=== PATIENT | male | born 1980 | race Caucasian/White ===

== ENCOUNTER 2019-09-05 19:10 | Emergency (ER) | payer SELFPAY ==
[~2019-09-05] VITALS: Ht 185.4 cm; Wt 93.0 kg
--- OUTSIDE RECORDS SUMMARY | 2019-09-05 19:13 | XMS REPORT | Continuity of Care Document ---
Author Author [facility] t Organization [facility] Address [address] [place] [address] Phone Unavailable Care Team Providers Care Cardiovascular Disease Specialist Name Role Phone Unavailable Unavailable Payers Payer Name Policy Type Policy Number Effective Date Expiration Date S ource Problems This patient has no known problems. Allergies, Adverse Reactions, Alerts Allergy Name Allergy Type Status Severity Reaction(s) Onset Date Inacti ve Date Treating Clinician Comments Source Penicillins DA Active U 2019-06-19 00:00:00 [facility] Penicillins DA Active U 2017-03-13 00:00:00 [facility] Medications This patient has no known medications. Procedures This patient has no known procedures. Results Test Description Test Time Test Comments Results Result Comments Source INFLUENZA A B 2019-06-19 14:19:00 Test Item INFLUENZA A (test code = FLUAPCR) Negative Negative INFLUENZA B (test code = FLUBPCR) Negative Negative - XR CHEST 1 [id number] 13:58:00 FAX: Meg Townsend [phone] Gates: St: PRE Name: CARMENCITA SWIFT [facility] : [birth year] Age/S: 38/M [address] [place] [address] Unit #: [id number] Loc: [place] [address] Phys: Meg Guido Acct: [id number] Dis Date: Status: PRE ER PHONE #: [phone] Exam Date: 06/19/2019 1353 FAX #: [phone] Reason: Cough EXAMS: CPT CODE: [id number] XR CHEST 1 V 24053 PROCEDURE: CHEST SINGLE VIEW INDICATION: Cough COMPARISON: None. FINDINGS: The lungs are clear. The pleura, cardiomediastinal silhouette and bony thorax are normal. No vascular congestion is present. IMPR ESSION: No acute cardiopulmonary process. SL: [id number] at 7887 Reported and signed by: Sal Warner M.D. CC: Meg MUNOZ Technologist: RT Ellen(Ras) Trnneftali Date/Time/By: 06/19/2019 (8102) : By: [email or web address] Orig Print D/T: S: 06/19/2019 (1535) PAGE 1 Signed Report - XR CHEST 1 [id number] 14:06:00 Gates: St: REG Name: CARMENCITA SWIFT [facility] : [birth year] Age/S: 38/M [address] [place] [address] Unit #: [id number] Loc: [place] [address] Phys: Christian Kumar MD Acct: [id number] Dis Date: Status: REG ER PHONE #: [phone] Exam Date: 03/13/2019 1350 FAX #: [phone] Reason: Weakness EXAMS: CPT CODE: [id number] XR CHEST 1 V 64235 CHEST, ONE VIEW: H ISTORY: Acute generalized weakness COMPARISON EXAM(S): August 2018 FINDINGS: This single portable view was obtained at 1349 hours on 03/13/2019 and shows the cardiac silhouette to be normal and the lungs clear. No pleural fluid or evidence of pneumothorax. Well-healed fracture is identified in the middle third of the left clavicle. The s keletal structures are otherwise unremarkable. IMPRESSION: 1. No acute changes. 2. Stable appearance of the c hest compared to August 2018. 3. Well healed left clavicle fracture. SL:01 at 1406 Reported and signed by: Dusty Brown M.D. CC: Technologist: RT Claudette(Ras) Trnscrd Date/Time/By: 03/13/2019 (5800) : By: Laurie Orig Print D/T: S: 03/13/2019 (7145) PAGE 1 Signed Report - CT HEAD/BRAIN W/O [id number] 13:58:00 Name: CARMENCITA GARZA [facility] : 1980 Age/S: 38 / M [address] [place] [address] Unit #: [id number] Loc: [place] [address] Phys: Christian Kumar MD Acct: [id number] Dis Date: Status: REG ER PHONE #: [phone] Exam Date: 03/13/2019 1345 FAX #: [phone] Reason: dizzy EXAMS: CPT CODE: [id number] CT HEAD/BRAIN W/O CONT 08673 CT head without contrast 03/13/2019 HISTORY: Dizziness. PROCEDURE: Multiple axial images from the skull base to the skull vertex were obtained without contrast. Coronal and sagittal reconstructed images were performed CT imaging performed at this location utilizes radiation dose optimization techniques which include one or more of the following: -Automated exposure control -Adjustment of the mA and/or kV according to patient size -Use of iterative reconstruction technique CT Radiation Dose DLP 419.7 mGy-cm Comparison is made to 03/13/2017 FINDINGS: No acute intracranial hemorrhage, midline shift, extra- axial fluid collection, or hydrocephalus is present. No cortical hypodensity to suggest an acute infarct is noted. Marcos-white differentiation is within normal limits. The visualized mastoid air cells are clear. There is no air-fluid level in the visualized paranasal sinuses. IMPRESSION: No acute intracranial abnormality. SL: [id number] at 1358 Reported and signed by: Sal Warner M.D. CC: Technologist:Harmeet Cornejo, RT(R)(CT) CTDI: DLP: Trnscb Date/Time: 03/13/2019 (5209) [email or web address] Orig Print D/T: S: 03/13/2019 (7732) PAGE 1 Signed Report TROPONIN-I [id number] 13:54:00* Test Item Value Reference Range Interpretation Comments TROPONIN-I RAPID (test code = TROPIRAP) 0.01 ng/mL 0.00-0.08 N Performed by certified take up operator at [facility] Negative: <= 0.08 Positive: >= 0.09An elevated troponin value alone is not sufficient todiagnose a myocardial infarction. Rather, the patient sclinical presentation (history, physical exam) and ECGshould be used in conjunction with troponin in thediagnostic evaluation of suspected myocardial infarction. Aserial sampling protocol is recommended to facilitate the identification of temporal changes in troponin levels characteristic of PR. CBC W/AUTO [id number] 13:48:00* Test Item Value Reference Range Interpretation Comments WHITE BLOOD CELL (test code = WBC) 5.94 x10 3/uL 4.5-11.0 N RED BLOOD CELL (test code = RBC) 5.49 x10 6/uL 4.00-5.60 N HEMOGLOBIN (test code = HGB) 16.0 g/dL 12.5-16.9 N HEMATOCRIT (test code = HCT) 48.4 % 37.5-50.7 N MEAN CELL VOLUME (test code = MCV) 88.2 fL 81.0-99.0 N MEAN CELL HGB (test code = MCH) 29.1 pg 27.0-33.0 N MEAN CELL HGB CONCETRATION (test code = MCHC) 33.1 g/dL 33.0-37. 0 N RED CELL DISTRIBUTION WIDTH CV (test code = RDW) 13.8 % 11.5- 14.5 N RED CELL DISTRIBUTION WIDTH SD (test code = RDW-SD) 44.3 fL 37 .0-54.0 N PLATELET COUNT (test code = PLT) 251 x10 3/uL 150-400 N MEAN PLATELET VOLUME (test code = MPV) 10.6 fL 7.0-9.0 H NEUTROPHIL % (test code = NT%) 64.2 % 56.0-77.0 N IMMATURE GRANULOCYTE % (test code = IG%) 0.2 % 0.0-2.0 N LYMPHOCYTE % (test code = LY%) 23.7 % 14.0-32.0 N MONOCYTE % (test code = MO%) 5.9 % 4.8-9.0 N EOSINOPHIL % (test code = EO%) 5.7 % 0.3-3.7 H BASOPHIL % (test code = BA%) 0.3 % 0.0-2.0 N NUCLEATED RBC % (test code = NRBC%) 0.0 % 0-0 N NEUTROPHIL # (test code = NT#) 3.81 x10 3/uL 2.0-7.6 N IMMATURE GRANULOCYTE # (test code = IG#) 0.01 x10 3/uL 0.00-0.03 N LYMPHOCYTE # (test code = LY#) 1.41 x10 3/uL 1.0-3.8 N MONOCYTE # (test code = MO#) 0.35 x10 3/uL 0.1-0.8 N EOSINOPHIL # (test code = EO#) 0.34 x10 3/uL 0.0-0.2 H BASOPHIL # (test code = BA#) 0.02 x10 3/uL 0.0-0.2 N NUCLEATED RBC # (test code = NRBC#) 0.00 x10 3/uL 0.0-0.1 N MANUAL DIFF REQUIRED (test code = MDIFF) NO CHEMISTRY 8 [id number] 13:46:00* Test Item Value Reference Range Interpretation Comments ISTAT-SODIUM (test code = NAP) MMOL/L 134-147 ISTAT-POTASSIUM (test code = KP) MMOL/L 3.4-5.0 ISTAT-CHLORIDE (test code = CLP) MMOL/L 100-108 ISTAT CARBON DIOXIDE (test code = ISTAT-CO2) mmol/L 21-33 N ISTAT CALCIUM IONIZED (test code = ISTAT-YONI) MG/DL 1.12-1.3 2 ISTAT-GLUCOSE (test code = GLUP) MG/DL 70-110 H ISTAT-BUN (test code = BUNP) MG/DL 7-18 N BEDSIDE CREATININE (test code = CREATBED) MG/DL 0.6-1.3 N GLOMERULAR FILTRATION RATE POC (test code = GFRBED) 72 ML/MIN CHEMISTRY 8 [id number] 13:46:00* Test Item Value Reference Range Interpretation Comments ISTAT-SODIUM (test code = NAP) 141 MMOL/L 134-147 N ISTAT-POTASSIUM (test code = KP) 3.9 MMOL/L 3.4-5.0 N ISTAT-CHLORIDE (test code = CLP) 105 MMOL/L 100-108 N Performed by certified take up operator at [facility] ISTAT CARBON DIOXIDE (test code = ISTAT-CO2) 25.0 mmol/L 21-33 N ISTAT CALCIUM IONIZED (test code = ISTAT-YONI) 1.17 MG/DL 1.12-1.3 2 N ISTAT-GLUCOSE (test code = GLUP) 113 MG/DL 70-110 H ISTAT-BUN (test code = BUNP) 18 MG/DL 7-18 N BEDSIDE CREATININE (test code = CREATBED) 1.2 MG/DL 0.6-1.3 N GLOMERULAR FILTRATION RATE POC (test code = GFRBED) 72 ML/MIN - ABDOMEN [id number] 23:34:00 Name: CARMENCITA GARZA [facility] : 1980 Age/S: 38 / M [address] [place] [address] Unit #: [id number] Loc: [place] [address] Phys: Carmencita Parker Acct: [id number] Dis Date: Status: REG ER PHONE #: [phone] Exam Date: 09/08/2018 2320 FAX #: [phone] Reason: RUQ and R rib pain with inspiration, tender to EXAMS: CPT CODE: [id number] US ABDOMEN LTD 08655 PROCEDURE: RUQ U/S CLINICAL INDICATION: Abdominal pain COMPARISON: CT abdomen dated 03/13/17 TECHNIQUE: Sonographic imaging is obtained of the right upper quadrant of the abdomen FINDINGS: LIVER: There is normal liver contour, size, and morphology with normal parenchymal echotexture. BILE DUCTS: The intrahepatic and extrahepatic bile ducts are not dilated with the common bile duct measuring right mm. GALLBLADDER: There is no gallstone, gallbladder sludge, pericholecystic fluid, or wall thickening. PANCREAS: The visualized pancreas appears unremarkable. KIDNEY: The right kidney measures 10.6 cm in length. There is normal renal contour and morphology, with normal parenchymal echotexture. There is no hydronephrosis. AORTA AND INFERIOR VENA CAVA: Visualized portions are unremarkable. ASCITES: There is no ascites. IMPRESSION: No acute abnormality. SL:01 at 2334 Reported and signed by: Philip Gupta M.D. CC: Carmencita MUNOZ Technologist: Montserrat Crandall RDMS(A)(OB) Trnscb Date/Time: 09/08/2018 (1019) [email or web address] Orig Print D/T: S: 09/08/2018 (1715) Probe: PAGE 1 Signed Report COMPREHENSIVE METABOLIC [id number] 23:31:00* Test Item Value Reference Range Interpretation Comments SODIUM (test code = NA) 137 mEq/L 134-147 N POTASSIUM (test code = K) 4.0 mEq/L 3.4-5.0 N CHLORIDE (test code = CL) 104 mEq/L 100-108 N CARBON DIOXIDE (test code = CO2) 28 mEq/L 21-33 N ANION GAP (test code = GAP) 9 0-20 N GLUCOSE (test code = GLU) 102 mg/dL 70-110 N BLOOD UREA NITROGEN (test code = BUN) 14 mg/dL 7-18 N GLOMERULAR FILTRATION RATE (test code = GFR) 74.5 105-110 L Units of measure = ml/min/1.73 m2 CREATININE (test code = CREAT) 1.1 mg/dL 0.6-1.3 N TOTAL PROTEIN (test code = PROT) 7.4 g/dL 6.4-8.2 N ALBUMIN (test code = ALB) 3.70 g/dL 3.4-5.0 N CALCIUM (test code = CA) 8.6 mg/dL 8.0-10.5 N BILIRUBIN TOTAL (test code = BILT) 0.40 mg/dL 0.0-1.0 N SGOT/AST (test code = AST) 26 IUnit/L 15-37 N SGPT/ALT (test code = ALT) 26 IUnit/L 15-65 N ALKALINE PHOSPHATASE TOTAL (test code = ALKP) 53 IUnit/L 20-125 N [id number] 23:31:00* Test Item Value Reference Range Interpretation Comments LIPASE (test code = LIP) 175 IUnit/L 73-393 N URINALYSIS [id number] 23:31:00* Test Item Value Reference Range Interpretation Comments UA COLOR (test code = COLU) YEL/STRAW UA APPEARANCE (test code = APPU) CLEAR UA GLUCOSE DIPSTICK (test code = DGLUU) NEGATIVE UA BILIRUBIN DIPSTICK (test code = BILU) NEGATIVE UA KETONE DIPSTICK (test code = KETU) NEGATIVE UA SPECIFIC GRAVITY (test code = SGU) 1.005-1.030 UA BLOOD DIPSTICK (test code = MITUL) NEGATIVE UA PH DIPSTICK (test code = BJ) 5.0-7.0 UA PROTEIN DIPSTICK (test code = PROU) NEGATIVE UA UROBILINIOGEN DIPSTICK (test code = URO) mg/dL 0.2-1.0 UA NITRITE DIPSTICK (test code = ROBERT) NEGATIVE UA LEUKOCYTE ESTERASE DIPSTICK (test code = LEUU) NEGA TIVE UA WBC (test code = WBCU) 0-3 WBC/HPF 0-3 UA RBC (test code = RBCU) 0-3 RBC/HPF 0-3 UA BACTERIA (test code = BACU) TRACE /HPF NONE SEEN UA SQUAMOUS CELLS (test code = SQU) 0-5 /HPF NONE SEEN URINALYSIS [id number] 23:31:00* Test Item Value Reference Range Interpretation Comments UA COLOR (test code = COLU) YELLOW YEL/STRAW UA APPEARANCE (test code = APPU) CLEAR CLEAR UA GLUCOSE DIPSTICK (test code = DGLUU) NEGATIVE NEGATIVE UA BILIRUBIN DIPSTICK (test code = BILU) NEGATIVE NEGATIVE UA KETONE DIPSTICK (test code = KETU) NEGATIVE NEGATIVE UA SPECIFIC GRAVITY (test code = SGU) 1.015 1.005-1.030 N UA BLOOD DIPSTICK (test code = MITUL) NEGATIVE NEGATIVE UA PH DIPSTICK (test code = BJ) 6.0 5.0-7.0 N UA PROTEIN DIPSTICK (test code = PROU) NEGATIVE NEGATIVE UA UROBILINIOGEN DIPSTICK (test code = URO) 0.2 mg/dL 0.2-1.0 UA NITRITE DIPSTICK (test code = ROBERT) NEGATIVE NEGATIVE UA LEUKOCYTE ESTERASE DIPSTICK (test code = LEUU) 1+ NEGA TIVE A UA WBC (test code = WBCU) 0-3 WBC/HPF 0-3 UA RBC (test code = RBCU) 0-3 RBC/HPF 0-3 UA BACTERIA (test code = BACU) TRACE /HPF NONE SEEN UA SQUAMOUS CELLS (test code = SQU) 0-5 /HPF NONE SEEN CBC W/AUTO [id number] 23:15:00* Test Item Value Reference Range Interpretation Comments WHITE BLOOD CELL (test code = WBC) 8.63 x10 3/uL 4.5-11.0 N RED BLOOD CELL (test code = RBC) 5.22 x10 6/uL 4.00-5.60 N HEMOGLOBIN (test code = HGB) 15.4 g/dL 12.5-16.9 N HEMATOCRIT (test code = HCT) 46.7 % 37.5-50.7 N MEAN CELL VOLUME (test code = MCV) 89.5 fL 81.0-99.0 N MEAN CELL HGB (test code = MCH) 29.5 pg 27.0-33.0 N MEAN CELL HGB CONCETRATION (test code = MCHC) 33.0 g/dL 33.0-37. 0 N RED CELL DISTRIBUTION WIDTH CV (test code = RDW) 12.4 % 11.5- 14.5 N RED CELL DISTRIBUTION WIDTH SD (test code = RDW-SD) 41.0 fL 37 .0-54.0 N PLATELET COUNT (test code = PLT) 295 x10 3/uL 150-400 N MEAN PLATELET VOLUME (test code = MPV) 10.4 fL 7.0-9.0 H NEUTROPHIL % (test code = NT%) 65.6 % 56.0-77.0 N IMMATURE GRANULOCYTE % (test code = IG%) 0.3 % 0.0-2.0 N LYMPHOCYTE % (test code = LY%) 23.8 % 14.0-32.0 N MONOCYTE % (test code = MO%) 6.5 % 4.8-9.0 N EOSINOPHIL % (test code = EO%) 3.6 % 0.3-3.7 N BASOPHIL % (test code = BA%) 0.2 % 0.0-2.0 N NUCLEATED RBC % (test code = NRBC%) 0.0 % 0-0 N NEUTROPHIL # (test code = NT#) 5.66 x10 3/uL 2.0-7.6 N IMMATURE GRANULOCYTE # (test code = IG#) 0.03 x10 3/uL 0.00-0.03 N LYMPHOCYTE # (test code = LY#) 2.05 x10 3/uL 1.0-3.8 N MONOCYTE # (test code = MO#) 0.56 x10 3/uL 0.1-0.8 N EOSINOPHIL # (test code = EO#) 0.31 x10 3/uL 0.0-0.2 H BASOPHIL # (test code = BA#) 0.02 x10 3/uL 0.0-0.2 N NUCLEATED RBC # (test code = NRBC#) 0.00 x10 3/uL 0.0-0.1 N MANUAL DIFF REQUIRED (test code = MDIFF) NO - XR RIBS UNI W/CXR 3+V [id number] 23:06:00 FAX: Carmencita Parker [phone] Gates: St: REG Name: CARMENCITA SWIFT [facility] : [birth year] Age/S: 38/M [address] [place] [address] Unit #: [id number] Loc: [place] [address] Phys: Carmencita Parker Acct: [id number] Dis Date: Status: REG ER PHONE #: [phone] Exam Date: 09/08/2018 2250 FAX #: [phone] Reason: Rib pain with palpation 5,6,7, painful inspirat EXAMS: CPT CODE: [id number] XR RIBS UNI W/CXR 3+[place] [id number] EXAM: CR, XR RIBS UNI W/chest 3+ view RT: 09/08/2018, 2242 hours HISTORY: Right-sided rib pain for 2 weeks TECHNIQUE: Right-sided rib series with 1 view of the chest. COMPARISON: Chest radiograph dated July 12, 2016 FI NDINGS: Chest: Trachea is midline. Heart is mildly enlarged. Pulm onary vascularity is indistinct. There is airspace consolidation, pleural effusion or no pneumothorax. Old left clavicular fracture. Right-sided ribs: No right-sided rib fractures identified. IMPRESSION: 1. No right-sided rib fracture seen. 2. No acute cardiopulmonary disease. SL: [JSYED-H] at 2306 Reported and signed by: Raj Marc M.D. CC: Carmencita MUNOZ Technologist: RT Billie(Ras) Trnscrd Date/Time/By: 09/08/2018 (2806) : By: [email or web address] Orig Print D/T: S: 09/08/2018 (8153) PAGE 1 Signed Report
[2019-09-05] MEDS ORDERED: DIPHENHYDRAMINE HCL 25 MG CAP PO ONE (19:30)
[2019-09-05] MEDS ORDERED: HYDROCODONE/APAP 10MG-325MG TAB PO ONE (19:30)
[2019-09-05] MEDS ORDERED: METHYLPREDNISOLONE SOD SUCC 125 MG/2ML VIAL IM ONE (19:30)
--- NOTE | 2019-09-05 19:40 | Emergency Department Note ---
History of Present Illnes History of Present Illness Chief Complaint: General Medicine Complaints History of Present Illness This is a 39 year old male presents to ER with complaint of being stung in the left wrist by a stingray while at [facility] today about an hour prior to arrival. Patient states the whole bar was still intact at stating that he can tell. Complains of numbness and pain to the left hand.. Historian: Patient Arrival Mode: Car Onset (how long ago): hour(s) (1) Location: left wrist Quality: pain, swelling, numbness Radiation: non-radiation Severity: moderate Onset quality: sudden Duration (how long): hour(s) (1) Timing of current episode: constant Progression: unchanged Chronicity: new Context: recent illness; trauma/injury (stung by stingray) Relieving factors: none Exacerbating factors: none Associated symptoms: denies other symptoms Treatments prior to arrival: none Past Medical/Family History Physician Review I have reviewed the patient's past medical and family history. Any updates have been documented here. Past Medical History Recent Fever: No Clinical Suspicion of Infectio: No New/Unexplained Change in Ment: No Past Medical History: GERD Past Surgical History: None Social History Alcohol Use: Occasional Any Illegal Drug Use: No Family History Family history of heart diseas: No Other Last Tetanus: OOD Review of Systems Review of Systems Constitutional: no symptoms EENTM: no symptoms Cardiovascular: no symptoms Respiratory: no symptoms Gastrointestinal: no symptoms Genitourinary: no symptoms Musculoskeletal: as per HPI Neurological: no symptoms Psychological: no symptoms Endocrine: no symptoms Hematological/Lymphatic: no symptoms Review of other systems All other systems reviewed and negative. Physical Exam Related Data Allergies: Coded Allergies: Penicillins (Verified Allergy, Severe, ANAPHYLAXIS, 09/05/19) Triage Vital Signs Vital Signs Date Time Temp Pulse Resp B/P (MAP) Pulse Ox O2 Delivery O2 Flow Rate FiO2 09/05/19 19:19 97.0 62 18 140/97 98 Vital signs reviewed: Yes Physical Exam CONSTITUTIONAL Constitutional: well-developed, well-nourished, distressed (mild) HENT HENT: normocephalic, atraumatic, oropharynx clear/moist, nose normal HENT L/R: left ext ear normal, right ext ear normal EYES Eyes: PERRL, conjunctivae normal NECK Neck: ROM normal PULMONARY Pulmonary: effort normal, breath sounds normal CARDIOVASCULAR Cardiovascular: regular rhythm, heart sounds normal, capillary refill normal, normal rate GASTROINTESTINAL Abdominal: soft, nontender, bowel sounds normal GENITOURINARY Genitourinary: exam deferred SKIN Skin: warm, dry MUSCULOSKELETAL Musculoskeletal: other (puncure wound left wrist with mild swelling and erythema, neuro vasulary intact, tendon exam intact) NEUROLOGICAL Neurological: alert, oriented x 3, no gross motor or sensory deficits PSYCHOLOGICAL Psychological: mood/affect normal, judgement normal Results Imaging Imaging results reviewed: Yes Impressions Patient Name: CARMENCITA GARZA MR #: [id number] : 1980 Age/Sex: 39/M Req #: [id number] Adm Physician: Ordered by: ELVIA VILLALOBOS MD Report #: [id number] Location: ER Room/Bed: Procedure: [id number] DX/WRIST LEFT 2 VIEWS Exam Date: Exam Time: REPORT STATUS: Signed WRIST LEFT 2 VIEWS - 3 views HISTORY: Pain. Sting ray bite. COMPARISON: None available. FINDINGS: Bones: No acute displaced fracture. Osseous alignment is within normal limits. Joints: The joint spaces are well-maintained. Soft tissues: Marked soft tissue swelling of the proximal palmar aspect of the hand. IMPRESSION: Marked soft tissue swelling of the proximal palmar aspect of the hand. Signed by: Dr. Stephania Pope M.D. on 09/05/2019 8:02 PM Dictated By: MELINA OPPE MD, MD 01 Transcribed By: DEE on 09/05/192001 Critical Care Time Subsequent provider I assumed direction of critical care for this patient from another provider of my specialty. Assessment & Plan Assessment & Plan Final Impression: (1) Toxic effect of contact with stingray, accidental (unintentional), initial encounter Assessment & Plan Patient presents to ER after being stung left wrist by a stingray today. Left wrist x-ray ordered to eval for foreign body to left wrist. Solu-Medrol 125 mg IM ordered. Benadryl 50 mg by mouth ordered. [place] 10/325 one by mouth ordered. At 2019 patient doing better still has pain but has improved. X-ray revealed no foreign body. Patient be discharged on Medrol Dosepak. And Levaquin 750 mg by mouth daily to prevent infection. Patient also stated by [id number] Benadryl take 1-2 every 4-6 hours as needed for itching and swelling. Depart Disposition: HOME, SELF-CARE Last Vital Signs Date Time Temp Pulse Resp B/P (MAP) Pulse Ox O2 Delivery O2 Flow Rate FiO2 09/05/19 19:19 97.0 62 18 140/97 98 Medications in the ED Methylprednisolone Sodium Succinate 125 mg ONCE ONCE IM ; Start 09/05/19 at 19:30; Stop 09/05/19 at 19:31; Status DC Diphenhydramine HCl 50 mg ONCE ONCE PO ; Start 09/05/19 at 19:30; Stop 09/05/19 at 19:31; Status UNV Acetaminophen/ Hydrocodone Bitart 1 ea ONCE ONCE PO ; Start 09/05/19 at 19:30; Stop 09/05/19 at 19:31; Status UNV ELVIA VILLALOBOS MD Sep 05, 2019 19:40
--- NOTE | 2019-09-05 20:05 | Diagnostic Imaging Report ---
WRIST LEFT 2 VIEWS - 3 views HISTORY: Pain. Sting ray bite. COMPARISON: None available. FINDINGS: Bones: No acute displaced fracture. Osseous alignment is within normal limits. Joints: The joint spaces are well-maintained. Soft tissues: Marked soft tissue swelling of the proximal palmar aspect of the hand. IMPRESSION: Marked soft tissue swelling of the proximal palmar aspect of the hand. Signed by: Dr. Stephania Pope M.D. on 09/05/2019 8:02 PM
== END 2019-09-05 20:20 | disposition home or self-care (01) ==
LOC: ER 19:10
DX: T63.511A Toxic effect of contact with stingray, accidental (unintentional), initial encounter (principal); Y92.832 Beach as the place of occurrence of the external cause; K21.9 Gastro-esophageal reflux disease without esophagitis
CPT/HCPCS: 73100; 99283; J2930